=== PATIENT | male | born 1985 | race African-American/Black ===

== ENCOUNTER 2017-09-16 09:35 | Emergency (ER) | payer BC ==
[2017-09-16 10:21] LABS: Hemoglobin 15.3 g/dL (14.0-18.0); Mean Corpuscular HGB CONC 32.8 g/dL (32.0-36.0); Mean Corpuscular Hemoglobin 29.1 pg (27.0-31.0); Mean Corpuscular Volume 88.7 fl (80.0-94.0); Mean Platelet Volume 6.5 fL (7.4-10.4); Platelet Count 286 thou/uL (130-400); RBC Distribution Width 11.6 % (11.5-14.5); Red Blood Cell (RBC) Count 5.27 mill/uL (4.70-6.10); White Blood Cell (WBC) Count 6.8 thou/uL (4.8-10.8)
[2017-09-16 10:38] LABS: ALT (SGPT) 26 U/L (8-55); AST (SGOT) 17 U/L (5-34); Albumin 4.4 g/dL (3.5-5.0); Alkaline Phosphatase 74 U/L (40-150); Anion Gap 12 mmol/L (10-20); BUN (Urea Nitrogen) 16 mg/dL (8.9-20.6); Bilirubin, Total 1.2 mg/dL (0.2-1.2); Calc. Creatinine Clearance 0 mL/min (70-130); Calcium 9.4 mg/dL (7.8-10.44); Carbon Dioxide 25 mmol/L (22-29); Chloride 106 mmol/L (98-107); Estimated GFR-MDRD 77; Globulin 3.5 g/dL (2.4-3.5); Glucose 130 mg/dL (70-105); Lipase 33 U/L (8-78); Protein, Total 7.9 g/dL (6.0-8.3); Sodium 139 mmol/L (136-145)
[2017-09-16 10:55] LABS: Lymphocytes 18 % (21-51); MDiff Complete? YES; Monocytes 1 % (0-10); Neutrophil 81 % (42-75); PLT Morphology Comment Appears Adequate; RBC Morphology Normal
[2017-09-16] MEDS ORDERED: Morphine 4 MG/ML VIAL ONE (11:44)
[2017-09-16] MEDS ORDERED: Ondansetron HCl/PF 4 MG/2 ML Vial ONE (11:45)
[2017-09-16 12:26] LABS: Bilirubin Negative (Negative); Blood, Urine Negative (Negative); Clarity CLEAR (Clear); Glucose, Urine (Dipstick) Negative (Negative); Leukocyte Trace (Negative); Nitrite Negative (Negative); Protein, Urine (Dipstick) Trace mg/dL (Neg-Trace); Specific Gravity, Urine 1.024 (1.002-1.036)
[2017-09-16 12:29] LABS: Bacteria/HPF None Seen HPF (None Seen); Hyaline Casts/LPF 0-3 HYALINE CAST LPF (0-3 Hyaline); RBC/HPF 0-3 HPF (0-3); Squamous Epithelial 0-3 HPF (0-3)
[2017-09-16 12:41] LABS: Renal Epithelial None Seen HPF (0-3); Transitional Epithelial 0-3 HPF (0-3)
--- NOTE | 2017-09-16 13:30 | CT ---
CT ABDOMEN AND PELVIS WITH IV CONTRAST: Date: 09/16/17 PROVIDED CLINICAL HISTORY: Abdominal pain. FINDINGS: The visualized lung bases are free of significant opacity. Solid abdominal organs demonstrate an unremarkable CT appearance. No bowel dilatation, inflammatory fat stranding, free fluid, or free air apparent. No CT evidence for appendicitis. The osseous structures demonstrate no concerning osteoblastic or osteolytic lesions. IMPRESSION: No evidence for an acute process. POS: JOSE
[2017-09-16] MEDS ORDERED: Iopamidol 370 76% 50 ML VIAL FS ONE (14:00)
[2017-09-16] MEDS ORDERED: ISOVUE-370 76%-LOCM 1 ML ONE (14:00)
== END 2017-09-16 14:17 | disposition home or self-care (01) ==
LOC: ERS 09:35
DX: R10.13 Epigastric pain (principal); F32.9 Major depressive disorder, single episode, unspecified
CPT/HCPCS: 36415; 74177; 80053; 81003; 81015; 83690; 85025; 96374; 96375; J2270; J2405

== ENCOUNTER 2018-12-02 04:28 | Emergency (ER) | payer BC ==
[2018-12-02 05:20] LABS: #Eosinphils 0.1 thou/uL (0.0-0.7); #Lymphocytes 1.7 thou/uL (1.20-3.40); #Monocytes 0.3 thou/uL (0.11-0.59); #Neutrophils 4.5 thou/uL (1.40-6.50); %Basophils 0.5 % (0.0-1.0); %Eosinophils 1.8 % (0.0-10.0); %Lymphocytes 25.7 % (21.0-51.0); %Monocytes 4.2 % (0.0-10.0); %Neutrophils 67.8 % (42.0-75.0); Hemoglobin 14.6 g/dL (14.0-18.0); Mean Corpuscular HGB CONC 32.4 g/dL (32.0-36.0); Mean Corpuscular Hemoglobin 28.7 pg (27.0-31.0); Mean Corpuscular Volume 88.6 fL (78.0-98.0); Mean Platelet Volume 7.4 fL (7.4-10.4); Platelet Count 248 thou/uL (130-400); RBC Distribution Width 11.4 % (11.5-14.5); Red Blood Cell (RBC) Count 5.11 mill/uL (4.70-6.10); White Blood Cell (WBC) Count 6.7 thou/uL (4.8-10.8)
[2018-12-02] MEDS ORDERED: Morphine 4 MG/ML VIAL ONE (05:25)
[2018-12-02] MEDS ORDERED: Ondansetron PF 4 MG/2 ML Vial ONE (05:25)
[2018-12-02 05:35] LABS: ALT (SGPT) 24 U/L (8-55); AST (SGOT) 18 U/L (5-34); Albumin 4.4 g/dL (3.5-5.0); Alkaline Phosphatase 99 U/L (40-150); Anion Gap 9 mmol/L (10-20); BUN (Urea Nitrogen) 14 mg/dL (8.9-20.6); Bilirubin, Total 0.7 mg/dL (0.2-1.2); Calc. Creatinine Clearance 0 mL/min (70-130); Calcium 9.2 mg/dL (7.8-10.44); Carbon Dioxide 27 mmol/L (22-29); Chloride 105 mmol/L (98-107); Estimated GFR-MDRD 76; Glucose 117 mg/dL (70-105); Lipase 37 U/L (8-78); Protein, Total 7.4 g/dL (6.0-8.3); Sodium 137 mmol/L (136-145)
--- NOTE | 2018-12-02 07:23 | CT ---
ABDOMEN AND PELVIS CT WITH CONTRAST: COMPARISON: 09/16/2017. INDICATION: Emergency exam performed for abdominal pain. FINDINGS: There is mild scarring/volume loss seen at the left lung base. The bowel is incompletely assessed wi thout enteric contrast. Site of anastomotic suture is present within the right lower/mid abdomen wit h focal ectasia and internal fluid, tense. No obvious surrounding inflammation. No free air. There is slight colonic wall prominence, notably involving the left hemicolon with slight surrounding stra nding of the pericolonic fat within the pelvis. Abdominal aorta is normal in caliber. Slight decrea sed attenuation of the hepatic parenchyma may be on the basis of hepatic steatosis. Correlate with l iver function enzymes. The remaining solid abdominal organs reveal no focal pathology. IMPRESSION: Evidence of anastomosis of the right lower mid abdomen with mild ectasia and fluid within site of román stomosed bowel. There is a slight area of wall prominence of the unopacified underdistended left hem icolon. Recommend clinical correlation to exclude colitis, as there is a slight degree of pericoloni c fat stranding visualized. POS: MARSHALL
[2018-12-02] MEDS ORDERED: ISOVUE-370 76%-LOCM 1 ML ONE (16:09)
== END 2018-12-02 06:58 | disposition home or self-care (01) ==
LOC: ERS 04:28
DX: A09 Infectious gastroenteritis and colitis, unspecified (principal)
CPT/HCPCS: 36415; 74177; 80053; 83690; 85025; 96361; 96374; 96375; J2270; J2405; Q9966

== ENCOUNTER 2018-12-06 20:28 | Emergency (ER) | payer BC ==
--- NOTE | 2018-12-06 21:37 | RAD ---
EXAM: 2 views of the abdomen HISTORY: Abdominal pain. History of small bowel obstruction COMPARISON: None FINDINGS: Single view of the abdomen shows a nonspecific, nonobstructive bowel gas pattern. No free a ir or air-fluid levels are seen on upright examination. No suspicious calcifications are seen. The bones are unremarkable. IMPRESSION: No evidence of bowel obstruction.
[2018-12-06 21:51] LABS: ALT (SGPT) 33 U/L (8-55); AST (SGOT) 38 U/L (5-34); Albumin 4.2 g/dL (3.5-5.0); Alkaline Phosphatase 72 U/L (40-150); Anion Gap 11 mmol/L (10-20); BUN (Urea Nitrogen) 14 mg/dL (8.9-20.6); Bilirubin, Total 0.7 mg/dL (0.2-1.2); Calc. Creatinine Clearance 0 mL/min (70-130); Calcium 9.1 mg/dL (7.8-10.44); Carbon Dioxide 28 mmol/L (22-29); Chloride 105 mmol/L (98-107); Estimated GFR-MDRD 74; Globulin 2.4 g/dL (2.4-3.5); Glucose 90 mg/dL (70-105); Potassium 4.1 mmol/L (3.5-5.1); Protein, Total 6.6 g/dL (6.0-8.3); Sodium 140 mmol/L (136-145)
[2018-12-06 22:03] LABS: Band 1 % (5-11); Eosinophils 4 % (0-10); Hemoglobin 13.5 g/dL (14.0-18.0); Lymphocytes 51 % (21-51); MDiff Complete? YES; Mean Corpuscular HGB CONC 32.5 g/dL (32.0-36.0); Mean Corpuscular Hemoglobin 28.8 pg (27.0-31.0); Mean Corpuscular Volume 88.6 fL (78.0-98.0); Mean Platelet Volume 7.2 fL (7.4-10.4); Monocytes 9 % (0-10); Neutrophil 34 % (42-75); Platelet Count 233 thou/uL (130-400); RBC Distribution Width 11.5 % (11.5-14.5); White Blood Cell (WBC) Count 5.7 thou/uL (4.8-10.8)
[2018-12-06] MEDS ORDERED: Dicyclomine 20 MG TAB ONE (22:12)
== END 2018-12-06 22:18 | disposition home or self-care (01) ==
LOC: ERS 20:28
DX: K52.9 Noninfective gastroenteritis and colitis, unspecified (principal)
CPT/HCPCS: 36415; 74019; 80053; 85025

== ENCOUNTER 2019-01-18 18:27 | Emergency (ER) | payer BC ==
[~2019-01-18 18:27] MED LIST: ISOVUE-370 76%-LOCM 1 ML ONE
[2019-01-18] MEDS ORDERED: Ondansetron PF 4 MG/2 ML Vial ONE (18:52)
[2019-01-18] MEDS ORDERED: Morphine 4 MG/ML VIAL ONE (18:52)
[2019-01-18 19:15] LABS: Hemoglobin 14.5 g/dL (14.0-18.0); Mean Corpuscular HGB CONC 31.6 g/dL (32.0-36.0); Mean Corpuscular Hemoglobin 27.8 pg (27.0-31.0); Mean Corpuscular Volume 88.2 fL (78.0-98.0); Mean Platelet Volume 7.2 fL (7.4-10.4); Platelet Count 238 thou/uL (130-400); RBC Distribution Width 11.3 % (11.5-14.5); Red Blood Cell (RBC) Count 5.22 mill/uL (4.70-6.10); White Blood Cell (WBC) Count 6.3 thou/uL (4.8-10.8)
[2019-01-18 19:22] LABS: ALT (SGPT) 42 U/L (8-55); AST (SGOT) 39 U/L (5-34); Albumin 4.2 g/dL (3.5-5.0); Alkaline Phosphatase 81 U/L (40-150); Anion Gap 10 mmol/L (10-20); BUN (Urea Nitrogen) 14 mg/dL (8.9-20.6); Bilirubin, Total 0.9 mg/dL (0.2-1.2); Calc. Creatinine Clearance 0 mL/min (70-130); Calcium 9.2 mg/dL (7.8-10.44); Carbon Dioxide 27 mmol/L (22-29); Chloride 106 mmol/L (98-107); Estimated GFR-MDRD 77; Globulin 2.9 g/dL (2.4-3.5); Glucose 104 mg/dL (70-105); Lipase 34 U/L (8-78); Potassium 3.4 mmol/L (3.5-5.1); Protein, Total 7.1 g/dL (6.0-8.3); Sodium 140 mmol/L (136-145)
--- NOTE | 2019-01-18 19:28 | CT ---
CT OF THE ABDOMEN AND PELVIS WITH IV CONTRAST: 01/18/19 INDICATION: 33-year-old male with nausea, vomiting, and abdominal pain. COMPARISON: Prior CT of the abdomen and pelvis dated 12/02/18. FINDINGS: There is bibasilar atelectasis. There is a small hiatal hernia. There is fluid material seen within the distal esophagus which could reflect reflux or dysmotility. There is layered sludge or gallstones within the gallbladder. No focal hepatic lesion is evident. The pancreas, adrenal glands and kidneys are normal appearing. No free fluid or enlarged lymph nodes are evident within the upper abdomen. Small splenule and spleen appear within normal limits. The rectum and colon are largely decompressed. The bladder is decompressed. No drainable fluid collec tion is evident. No enlarged lymph nodes are demonstrated. There is shotty appearing lymph nodes seen within the central mesentery which were present on the comparison examination. Small bowel demonstra annie some mild wall thickening in the left upper quadrant. The appendix is not definitely seen. There is stable slight aneurysmal dilatation of the loops of small bowel in the right lower quadrant of the abdomen consistent with an anastomotic suture site. No acute osseous abnormality is evident. IMPRESSION: 1. Mild wall thickening involving the loops of jejunum in the left upper quadrant of the abdomen can reflect an enteritis. 2. Slightly prominent mesenteric lymph nodes may be reactive in nature. 3. Layered sludge versus small stones within the gallbladder. 4. Postsurgical change of small bowel resection within the right lower quadrant with mild dilata tion of the anastomotic site. This is stable to a comparison. POS:
[2019-01-18 19:29] LABS: Band 2 % (5-11); Eosinophils 2 % (0-10); Lymphocytes 54 % (21-51); MDiff Complete? YES; Monocytes 8 % (0-10); Neutrophil 26 % (42-75); Platelet Morphology Comment Appears Adequate; RBC Morphology Normal; Reactive Lymphocytes 8 % (0-10)
== END 2019-01-18 20:20 | disposition home or self-care (01) ==
LOC: ERS 18:27
DX: K44.9 Diaphragmatic hernia without obstruction or gangrene (principal); R11.2 Nausea with vomiting, unspecified
CPT/HCPCS: 74177; 80053; 83690; 85025; 96361; 96374; 96375; J2270; J2405; Q9966

== ENCOUNTER 2023-12-22 05:33 | Emergency (ER) | payer BC ==
[2023-12-22] MEDS ORDERED: Ibuprofen 800 MG TAB ONE (06:19)
[2023-12-22] MEDS ORDERED: Boostrix 0.5 ML (Tdap) VIAL (>/=7 yrs of age) ONE (06:28)
== END 2023-12-22 06:35 ==
LOC: ERS 05:33 → EEVIPCON 05:33 → ERS 06:35
DX: S40.211A Abrasion of right shoulder, initial encounter (principal); S60.411A Abrasion of left index finger, initial encounter; S60.519A Abrasion of unspecified hand, initial encounter; S90.812A Abrasion, left foot, initial encounter; S90.811A Abrasion, right foot, initial encounter; T14.8XXA Other injury of unspecified body region, initial encounter; Z23 Encounter for immunization; E11.9 Type 2 diabetes mellitus without complications; I10 Essential (primary) hypertension; W22.8XXA Striking against or struck by other objects, initial encounter
CPT/HCPCS: 90471; 90715